=== PATIENT | male | born 1995 | race Caucasian/White ===

== ENCOUNTER 2016-05-01 17:46 | Emergency (ER) | payer OTHER ==
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
[2016-05-01 18:56] VITALS: BP 129/79; PULSE 70; RESP 14; TEMP 98.4; O2SAT 96
== END 2016-05-01 18:52 | disposition home or self-care (01) ==
PROC: 0CQ0XZZ Repair Upper Lip, External Approach (ICD-10-PCS; principal; 2016-05-01)
DX: S01.511A Laceration without foreign body of lip, initial encounter (principal); W50.0XXA Accidental hit or strike by another person, initial encounter